=== PATIENT | female | born 1985 | race Caucasian/White ===

== ENCOUNTER 2016-05-03 21:22 | Emergency (ER) | payer MEDICAID, OTHER ==
[~2016-05-03] VITALS: Ht 152.4 cm; Wt 70.5 kg
[~2016-05-03 21:22] MED LIST: ACET-66 PO
[2016-05-03] MEDS ORDERED: IBUP-1547 PO (21:29)
[2016-05-03] MEDS ORDERED: ETON1VAG VG (21:31)
[2016-05-03 22:23] VITALS: BP 137/99
[2016-05-03] MEDS ORDERED: TraMADol HCL 50 MG TABLET PO ONE (22:30)
[2016-05-03] MEDS ORDERED: AMOX TR/POT CLAV 875 MG/125 MG TABLET PO ONE (22:30)
== END 2016-05-03 22:52 | disposition home or self-care (01) ==
LOC: EMS 21:23
DX: J32.9 Chronic sinusitis, unspecified (principal); H92.01 Otalgia, right ear; K08.89 Other specified disorders of teeth and supporting structures; Z88.1 Allergy status to other antibiotic agents
CPT/HCPCS: 99283

== ENCOUNTER 2017-03-23 13:48 | Emergency (ER) | payer OTHER ==
[~2017-03-23] VITALS: Ht 152.4 cm; Wt 68.2 kg
[~2017-03-23 13:48] MED LIST changes: +ETON1VAG VG; +IBUP-2071 PO
[2017-03-23] MEDS ORDERED: ACETAMINOPHEN 325 MG TABLET PO ONE (15:15)
[2017-03-23] MEDS ORDERED: OSELTAMIVIR PHOSPHATE 75 MG CAPSULE PO ONE (16:15)
[2017-03-23 16:26] VITALS: BP 132/79
[2017-03-23 17:04] LABS: INFLUENZA TYPE A NEGATIVE FOR TYPE A (NEGATIVE); INFLUENZA TYPE B NEGATIVE FOR TYPE B (NEGATIVE)
== END 2017-03-23 17:15 | disposition home or self-care (01) ==
LOC: EMS 13:49
DX: J06.9 Acute upper respiratory infection, unspecified (principal); R03.0 Elevated blood-pressure reading, without diagnosis of hypertension; R51 Headache; Z88.1 Allergy status to other antibiotic agents
CPT/HCPCS: 87804; 99284